=== PATIENT | male | born 1985 | race Caucasian/White ===

== ENCOUNTER 2016-08-02 11:51 | Emergency (ER) | payer SELFPAY ==
[~2016-08-02] VITALS: Ht 180.3 cm; Wt 70.3 kg
[2016-08-02] MEDS ORDERED: IV NORMAL SALINE 1000ML BAG 1,000 ML IV SCH (13:06)
[2016-08-02 13:15] LABS: BASO % 0 % (0-3); EOS % 2 % (0-3); HEMATOCRIT 43.9 % (39.0-53.0); HEMOGLOBIN 14.8 g/dL (13.0-17.5); LYMPH # 1.4 x10^3/uL (1.0-4.8); LYMPH % 27 % (24-48); MEAN CORPUSCULAR HEMOGLOBIN 30 pg (25-35); MEAN CORPUSCULAR HGB CONC 34 g/dL (31-37); MEAN CORPUSCULAR VOLUME 88 fL (79-100); MONO % 14 % (0-9); NEUT % 57 % (31-73); PLATELET COUNT 174 x10^3/uL (140-400); RED CELL DISTRIBUTION WIDTH 13.5 % (11.5-14.5); WHITE BLOOD COUNT 5.2 x10^3/uL (4.0-11.0)
[2016-08-02] MEDS ORDERED: KETOROLAC TROMETHAMINE 30 MG/ML SYRINGE. IV ONE (13:15)
[2016-08-02] MEDS ORDERED: ONDANSETRON PF 4 MG/2 ML VIAL. IV ONE (13:15)
[2016-08-02 13:21] LABS: CALCIUM 8.8 mg/dL (8.5-10.1); CREATININE 1.1 mg/dL (0.7-1.3); GFR 77.6; POTASSIUM 3.7 mmol/L (3.5-5.1)
[2016-08-02 13:27] LABS: DIRECT BILIRUBIN 0.1 mg/dL (0.0-0.2); TOTAL BILIRUBIN 0.4 mg/dL (0.2-1.0); TOTAL PROTEIN 7.5 g/dL (6.4-8.2)
[2016-08-02 13:30] LABS: NEGATIVE OBC MONO NEG; POSITIVE OBC MONO POS
[2016-08-02 13:38] LABS: OBC FLU VALID
--- NOTE | 2016-08-02 13:50 | RAD ---
INDICATION: cough COMPARISON: 08/27/2012 FINDINGS: Frontal views of chest obtained. No definite focal airspace consolidation or edema. Mediastinal contour are unremarkable. No gross osseous destructive lesion. IMPRESSION: No focal airspace consolidation or edema.
[2016-08-02 14:00] VITALS: BP 111/58
[2016-08-02] MEDS ORDERED: PROM25TA10 PO (14:10)
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
== END 2016-08-02 14:29 | disposition home or self-care (01) ==
LOC: ER 11:51
DX: J09.X2 Influenza due to identified novel influenza A virus with other respiratory manifestations (principal); R11.2 Nausea with vomiting, unspecified; F15.10 Other stimulant abuse, uncomplicated; F12.10 Cannabis abuse, uncomplicated; Z88.5 Allergy status to narcotic agent
CPT/HCPCS: 36415; 71010; 80048; 80076; 83690; 85027; 86308; 87804; 96361; 96374; 96375; 99285; J1885; J2405; J7030

== ENCOUNTER 2017-04-10 14:26 | Emergency (ER) | payer BC ==
[~2017-04-10] VITALS: Ht 180.3 cm; Wt 70.3 kg
[~2017-04-10 14:26] MED LIST: PROM25TA10 PO
[2017-04-10 14:52] VITALS: BP 115/76
[2017-04-10] MEDS ORDERED: AZITHROMYCIN 250 MG TABLET. PO ONE (15:00)
[2017-04-10] MEDS ORDERED: metroNIDAZOLE 500 MG TABLET PO ONE (15:00)
[2017-04-10] MEDS ORDERED: cefTRIAXone IM 250 MG VIAL IM ONE (15:00)
[2017-04-10 15:14] LABS: BILIRUBIN,URINE NEGATIVE (NEG); GLUCOSE,URINE NEGATIVE (NEG); NITRITE,URINE NEGATIVE (NEG); PROTEIN,URINE NEGATIVE (NEG-TRACE)
[2017-04-10] MEDS ORDERED: ACYC800T PO (15:18)
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
[2017-04-10 15:33] LABS: BACTERIA,URINE 0 /HPF (0-FEW); RBC,URINE 0 /HPF (0-2); WBC,URINE OCC /HPF (0-4)
[2017-04-12 22:14] LABS: HERPES SIMPLEX TYPE 1 Negative (Negative); HERPES SIMPLEX TYPE 2 Negative (Negative)
== END 2017-04-10 15:26 | disposition home or self-care (01) ==
LOC: ER 14:26
DX: A60.01 Herpesviral infection of penis (principal); Z88.5 Allergy status to narcotic agent
CPT/HCPCS: 81001; 87491; 87529; 87591; 96372; 99284; J0696; Q0144